=== PATIENT | female | born 2000 | race African-American/Black ===

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

== ENCOUNTER 2024-07-04 08:51 | Emergency (ER) | payer MEDICAID, OTHER ==
[~2024-07-04] VITALS: Ht 165.1 cm; Wt 68.1 kg
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
[2024-07-04] MEDS: ACETAMINOPHEN 325 MG TAB PO ONE (10:21)
[2024-07-04 10:36] VITALS: PULSE 72; RESP 16; O2SAT 95
[2024-07-04 11:00] LABS: Urine Bacteria None Seen /hpf (None Seen)
[2024-07-04 11:31] LABS: Urine Blood Negative /uL (Negative); Urine Clarity Turbid (Clear); Urine Color Light-Yellow (Yellow); Urine Protein, UAD Negative (Negative); Urine Specific Gravity 1.018 (1.001-1.035); Urine Urobilinogen Normal (Negative); Urine WBC 1 /hpf (0 - 5)
[2024-07-04] MEDS ORDERED: DIVA-93 PO (11:45)
[2024-07-04 11:53] VITALS: BP 122/79; PULSE 72; RESP 16; TEMP 98.7; O2SAT 98
== END 2024-07-04 11:55 | disposition home or self-care (01) ==
LOC: ER 08:51 → EDBD 08:51 → ER 11:55
DX: G40.909 Epilepsy, unspecified, not intractable, without status epilepticus (principal); M54.2 Cervicalgia
CPT/HCPCS: 81001; 81025